=== PATIENT | male | born 1985 | race Caucasian/White ===

== ENCOUNTER 2016-08-27 20:03 | Emergency (ER) | payer SELFPAY | END 2016-08-27 21:11 | disposition home or self-care (01) | LOC: ER 20:03 | DX: S39.92XA Unspecified injury of lower back, initial encounter (principal); S49.92XA Unspecified injury of left shoulder and upper arm, initial encounter; F17.200 Nicotine dependence, unspecified, uncomplicated; Z88.0 Allergy status to penicillin; Z88.5 Allergy status to narcotic agent; W13.2XXA Fall from, out of or through roof, initial encounter | CPT/HCPCS: 72100; 73080-LT; 73110-LT; 99283 ==